=== PATIENT | female | born 1980 | race Caucasian/White ===

== ENCOUNTER 2023-10-17 10:19 | Outpatient (CLI) | payer OTHER, SELFPAY ==
[2023-10-17 11:24] LABS: Anion Gap 9 mmol/L (4-12); Blood Urea Nitrogen 14 mg/dL (7-17); Calcium 9.1 mg/dL (8.4-10.2); Carbon Dioxide 23 mmol/L (22-30); Chloride 110 mmol/L (98-107); Estimated Glomerular Filt Rate > 60; Glucose 79 mg/dL (65-110); Potassium 3.7 mmol/L (3.4-5.0); Sodium 142 mmol/L (137-145)
== END 2023-10-17 10:20 | disposition home or self-care (01) ==
PROVIDERS: Visit Provider Student in an Organized Health Care Education/Training Program
DX: G40.109 Localization-related (focal) (partial) symptomatic epilepsy and epileptic syndromes with simple partial seizures, not intractable, without status epilepticus (principal)
CPT/HCPCS: 36415; 80048

== ENCOUNTER 2024-02-02 13:20 | Outpatient (CLI) | payer OTHER, SELFPAY ==
--- NOTE | ~2024-02-02 | MR_ITS ---
EXAMINATION: MR brain/brain stem wo con DATE: 02/02/2024 14:06 INDICATION: Epilepsy. TECHNIQUE: Magnetic resonance imaging (MRI) of the brain and brainstem was performed without intraven ous contrast. COMPARISON: None. FINDINGS: There is no intracranial hemorrhage or acute infarction. There is increased T2-weighted sig nal intensity in medial right temporal lobe including the uncus. The hippocampi are normal and symmet edouard. The ventricles are normal in size. There is a mucous retention cyst in left ethmoid sinus. The m astoid air cells are normal. The orbits are normal. IMPRESSION: 1. Increased T2-weighted signal intensity in medial right temporal lobe. The differential diagnosis i ncludes cortical dysplasia, glioma, subacute versus chronic infarct, and HSV encephalitis. Brain MRI with contrast is recommended. Reviewed, dictated and finalized at location A. IMPRESSION: 1. Increased T2-weighted signal intensity in medial right temporal lobe. The di fferential diagnosis includes cortical dysplasia, glioma, subacute versus chron ic infarct, and HSV encephalitis. Brain MRI with contrast is recommended.
== END 2024-02-02 13:21 | disposition home or self-care (01) ==
PROVIDERS: Visit Provider Psychiatry & Neurology Neurology
DX: G40.109 Localization-related (focal) (partial) symptomatic epilepsy and epileptic syndromes with simple partial seizures, not intractable, without status epilepticus (principal)
CPT/HCPCS: 70551

== ENCOUNTER 2024-06-18 10:13 | Outpatient (CLI) | payer OTHER, SELFPAY ==
[2024-06-18 10:45] LABS: Basophils Absolute Auto 0.1 K/mm3 (0.0-0.1); Basophils Percent Auto 0.7 % (0.2-1.2); Eosinophils Absolute Auto 0.2 K/mm3 (0-0.3); Eosinophils Percent Auto 1.7 % (0-4.4); Hematocrit 36.4 % (37.0-47.0); Hemoglobin 10.5 g/dL (12.0-15.0); Immature Granulocyte Absolute 0.04 K/mm3 (0.00-0.031); Immature Granulocyte Percent A 0.4 % (0-0.5); Lymphocytes Absolute Auto 3.19 K/mm3 (0.9-3.2); Lymphocytes Percent Auto 29.5 % (18.3-44.2); Mean Corpuscular HGB Conc 28.8 g/dl (32-36); Mean Corpuscular Hemoglobin 20.8 pg (26-34); Mean Corpuscular Volume 72.2 fl (80-100); Mean Platelet Volume 9.4 fl (7.4-10.4); Monocytes Absolute Auto 0.8 K/mm3 (0.1-0.6); Monocytes Percent Auto 7.4 % (2.6-8.5); Neutrophils Absolute Auto 6.5 K/mm3 (1.3-6.7); Neutrophils Percent Auto 60.3 % (45.5-73.1); Platelet Count Result 435 k/mm3 (150-375); Red Blood Count 5.04 M/mm3 (4.2-5.4); Red Cell Distribution Width 19.6 % (11.5-14.5); White Blood Count 10.8 K/mm3 (4.5-10.0)
[2024-06-18 10:54] LABS: Alanine Aminotransferase 17 U/L (6-35); Albumin Level 4.2 g/dL (3.5-5.1); Alkaline Phosphatase 105 U/L (38-126); Anion Gap 7 mmol/L (4-12); Aspartate Amino Transferase 30 U/L (14-36); Bilirubin,Total 0.4 mg/dL (0.2-1.3); Blood Urea Nitrogen 12 mg/dL (7-17); Calcium 8.9 mg/dL (8.4-10.2); Carbon Dioxide 26 mmol/L (22-30); Chloride 105 mmol/L (98-107); Estimated Glomerular Filt Rate > 60; Glucose 83 mg/dL (65-110); Sodium 138 mmol/L (137-145)
--- OUTSIDE RECORDS SUMMARY | 2024-06-18 10:58 | XMS_ITS | Clinical Summary ---
Author Organization [facility] Address [address] [address] Care Team Providers Care Head Up Operator Helper Name Role Phone WilliamsAngel chRegino FAJARDO-FIRE PROTECTION DESIGNER Primary Care Provider [phone] Source Comments [facility],non-owned Affiliates and Associated Physician Practices is amultiple site organization consisting of ambulatory clinics and hospital sitesin [place], [place], [place] and [place]. This disclosure is being madepursuant to the Care Everywhere program and may not contain all information available regarding this patient. Last updated 18.[facility] Allergies No known active allergies Medications * Be aware that medications may not be up to date on this document. Alwaysverify current medications with the patient. Medication Sig Dispensed Refills Start Date End Date Status carBAMazepine ER 12hr (CARBATROL) 300 MG capsule Take 1 (one) capsule by mouth every 12 hours Active HYDROcodone-acetam inophen (NORCO) 5-325 MG tablet Take 1 (one) tablet by mouth every 6 hours as needed for Pain 20 tablet 04/10/2021 Active Additional Information Patient not taking.Reported on 06/10/2023 ofloxacin (Floxin) 0.3 % otic solutionIndication s:Otitis Externa Instill 5 (five) drops into left ear 2 times daily Reasons: External Ear Canal Inflammation 5 mL 06/10/2023 Active Active Problems No known active problems Social History Tobacco Use Types Packs/Day Years Used Date Smoking Tobacco: Never Smokeless Tobacco: Never Tobacco Cessation:Counseling Given: Not Answered Alcohol Use Standard Drinks/Week Comments Not Currently 0 (1 standard drink = 0.6 oz pur e alcohol) AUDIT-C Answer Date Recorded Q1: How often do you have a drink containing alc ohol? Never 04/10/2021 Average Number of Drinks Not on file 021 Frequency of Binge Drinking Not on file 03/14 PHQ-2 Answer Date Recorded Patient Health Questionnaire-2 Score 0 06/10/2023 Sex and Gender Information Value Date Recorded Sex Assigned at Not on file Gender Identity Not on file Sexual Orientation Not on file Last Filed Vital Signs Vital Sign Reading Time Taken Comments Blood Pressure 134/80 06/10/2023 9:56 AM LOOPER FIXER Pulse 98 06/10/2023 9:56 AM LOOPER FIXER Temperature 36.7 C (98.1 F) 06/10/2023 9:56 AM LOOPER FIXER Respiratory Rate 18 04/10/2021 10:56 PM LOOPER FIXER Oxygen Saturation 98% 06/10/2023 9:56 AM LOOPER FIXER Inhaled Oxygen Concentration - - Weight 103.4 kg (228 lb) 06/10/2023 9:56 AM LOOPER FIXER Height 162.6 cm (5' 4 ) 04/10/2021 1:30 PM LOOPER FIXER Body Mass Index 39.14 04/10/2021 1:30 PM LOOPER FIXER Plan of Treatment Health Maintenance Due Date Last Done Comments LIPID TESTING 1981 MAMMOGRAM 1981 PAP SMEAR 1981 HIV SCREENING 01/24/1996 HEPATITIS C SCREENING 01/19/1999 DTAP/TDAP/TD VACCINES (1 - Tdap) 01/24/2000 HEPATITIS B VACCINE (1 of 3 - 19+ 3-dose series) 01/24/2000 COVID-19 VACCINE (2 - 2023-2 5 season) 2024 01/17/2021 INFLUENZA VACCINE (#1) 2024 04/16/2017 DEPRESSION SCREENING 05/12/2024 06/10/2023 ZOSTER VACCINE (1 of 2) 2031 HIB VACCINE Aged Out No longer eligi ble based on patient's age to complete this topic HPV VACCINE Aged Out No longer eligi ble based on patient's age to complete this topic MENINGOCOCCAL (Group B) VACCINE Aged Out No longer eligible based on patient's age to complete this topic MENINGOCOCCAL VACCINE Aged Out No gabriela darrius eligible based on patient's age to complete this topic PNEUMOCOCCAL VACCINE Aged Out No long er eligible based on patient's age to complete this topic Care Teams Head Up Operator Helper Relationship Specialty Start Date End Date Keiry Tovar APRN-FIRE PROTECTION DESIGNER [address] [place] [id number] PCP - General Nurse Practitioner 03/13/17
--- OUTSIDE RECORDS SUMMARY | 2024-06-18 10:58 | XMS_ITS | Patient Health Summary ---
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 3.5 - 10.5 10 3/uL 04/10/2021 2:00 PM [facility] RBC 4.97 3.80 - 5.20 10 6/uL 04/10/2021 2:00 PM [facility] Hemoglobin 13.8 12.0 - 15.6 g/dL 04/10/2021 2:00 PM [facility] Hematocrit 42.0 35.0 - 45.0 % 04/10/2021 2:00 PM [facility] MCV 84.5 80.7 - 98.3 fL 04/10/2021 2:00 PM [facility] MCH 27.8 26.7 - 34.0 pg 04/10/2021 2:00 PM [facility] MCHC 32.9 30.8 - 35.9 g/dL 04/10/2021 2:00 PM [facility] Platelet Count 336 150 - 400 10 3/uL 04/10/2021 2:00 PM [facility] RDW-SD 41.8 36.0 - 50.0 fL 04/10/2021 2:00 PM [facility] RDW-CV 13.6 11.2 - 14.8 % 04/10/2021 2:00 PM [facility] MPV 10.0 9.4 - 12.9 fL 04/10/2021 2:00 PM [facility] nRBC Absolute 0.00 0 10 3/uL 04/10/2021 2:00 PM [facility] nRBC Auto 0.0 0 /100 WBC 04/10/2021 2:00 PM [facility] Neutrophils % 81.6(H) 35.0 - 70.0 % 04/10/2021 2:00 PM [facility] Lymphocytes % 11.2(L) 20.0 - 43.0 % 04/10/2021 2:00 PM [facility] Monocytes % 6.0 5.0 - 13.0 % 04/10/2021 2:00 PM [facility] Eosinophils % 0.3 0.0 - 6.0 % 04/10/2021 2:00 PM [facility] Basophil % 0.4 0.0 - 2.0 % 04/10/2021 2:00 PM [facility] Neutrophils Absolute 13.5(H) 1.6 - 7.0 10 3/uL 04/10/2021 2:00 PM [facility] Lymphocyte Absolute 1.9 1.1 - 3.9 10 3/uL 04/10/2021 2:00 PM [facility] Monocytes Absolute 0.99 0.26 - 1.07 10 3/uL 04/10/2021 2:00 PM [facility] Eosinophils Absolute 0.05 0.00 - 0.47 10 3/uL 04/10/2021 2:00 PM [facility] Basophils Absolute 0.06 0.00 - 0.08 10 3/uL 04/10/2021 2:00 PM [facility] Immature Granulocytes % 0.5 0.0 - 1.0 % 04/10/2021 2:00 PM [facility] Immature Granulocytes Absolute 0.09 04/10/2021 2:00 PM [facility] Blood BLOOD SPECIMEN / Unknown Venipuncture / Unknown 04/10/2021 1:37 PM [employer] SALES REP 04/10/2021 1:53 PM [facility] Bienvenido Kohli MD LAB - HEMATOLOGY ORD ERABLES [facility] [address] [place] [phone], [facility] [phone] * HCG BETA BLOOD QUANTITATIVE (04/10/2021 1:37 PM [employer] SAL[employer] REP) Beta-hCG Total Quantitative <3 <5 mIU/mL 04/10/2021 2:27 PM [facility] Comment: This assay is cleared for use in the early detection of only. It is not approved for any other uses such as tumor marker screening, tumor marker monitoring, etc. and should not be used for any other purposes. HCG Numeric Result Interpretation: Non- Females: < 5 mIU/mL Post-Menopausal Females: < 7 mIU/mL Blood BLOOD SPECIMEN / Unknown Venipuncture / Unknown 04/10/2021 1:37 PM [employer] FINANCE SALES REP 04/10/2021 1:53 PM [employer] SAL[employer] RE[employer] Bienvenido Kohli MD LAB - CHEMISTRY [place] Performing Organization Address City/[facility]/ZIP Co de Phone Number [address] [address], [employer] [phone] * CARBAMAZEPINE LEVEL TOTAL (04/10/2021 1:37 PM [employer] SALES REP) Only the most recent of2 resultswithin the time period is included. Pathologist [facility] Carbamazepine, trough 7.7 4.0 - 12.0 ug/mL 04/10/2021 2:27 PM AUT[employer] FINANCE SALES REP [facility] Blood BLOOD SPECIMEN / Unknown Venipuncture / Unknown 04/10/2021 1:37 PM [employer] FINANCE SALES REP 04/10/2021 1:53 PM [employer] SAL[employer] RE[employer] Bienvenido Kohli MD LAB - CHEMISTRY [place] Performing Organization Address [facility]/ZIP Co de Phone Number [address] [address], [employer] [phone] * TYPE + SCREEN PANEL (04/10/2021 1:30 PM [employer] FINANCE SALES REP) Only the most recent of2 resultswithin the time period is included. [facility] Antibody Screen NEG 2:51 PM [employer] FINANCE SALES REP [facility] ABO Rh B POS 04/10/2021 2:51 PM [employer] FINANCE SALES REP [facility] Blood Bank BLOOD SPECIMEN / Unknown Venipuncture / Unknown 04/10/2021 1:30 PM [employer] FINANCE SALES REP 04/10/2021 1:55 PM [employer] SALES REP Bienvenido Kohli MD LAB - BLOOD BANK ORD KIERA [facility] [address] [place] [phone], [employer] [phone] * EKG 12-LEAD (04/10/2021 11:24 AM [employer] FINANCE SALES REP) Pathologist [facility] Ventricular Rate 82 BPM [facility] MUSE Atrial Rate 82 BPM [facility] MUSE P-R Interval 140 ms [facility] MUSE QRS Duration ms 78 ms [facility] MUSE Q-T Interval ms 374 ms [facility] MUSE QTC Calculation (Bezet) 436 ms [facility] MUSE Calculated P Brogue 45 degrees [facility] MUSE Calculated R Brogue 9 degrees [facility] MUSE Calculated T Brogue 67 degrees [facility] MUSE Interpretation EKG NORMAL SINUS RHYTHM NORMAL ECG NO PREVIOUS ECGS AVAILABLE Confirmed by HOLLIE LEONARD, [facility] ([id number]), video tape editor SPENCER DOAN ([id number]) on 04/11/2021 7:50:00 AM [facility] MUSE 04/10/2021 11:2 4 AM [employer]ANCE SALES REP 04/11/2021 7:50 AM [employer] FINANCE SALES REP Nara Henderson MD ECG ORDERABLES [facility] M[facility] * TSH REFLEX FREE T4 (04/10/2021 11:16 AM AUTO FINANCE SALES REP) [facility] TSH 1.937 0.35 - 4.94 uIU/mL 04/10/2021 3:50 PM [employer] FINANCE SALES REP [facility] Comment:TSH Normal, Reflex F ree T4 Not Performed. Blood BLOOD SPECIMEN / Unknown Venipuncture / Unknown 04/10/2021 11:16 AM [employer] FINANCE SALES REP 04/10/2021 3:11 PM [employer] FINANCE SALES REP Nara Henderson MD LAB - CHEMISTRY ORDE RABSANDOVAL [facility] [address] * TROPONIN I (04/10/2021 11:16 AM AUT[employer] FINANCE SALES REP) [facility] Troponin I <0.012 <0.032 ng/mL 04/10/2021 11:54 AM AUT[employer] FINANCE SALES REP [facility] Blood BLOOD SPECIMEN / Unknown Venipuncture / Unknown 04/10/2021 11:16 AM [employer] FINANCE SALES REP 04/10/2021 11:20 AM AUT[employer] FINANCE SALES REP Narrative [facility] - 04/10/2021 11:54 AM [employer] FINANCE SALES REP The universal definition of myocardial infarction (AK) being at least one value above the 99th percentile of the upper reference limit (0.028 ng/mL combined male/female), along with evidence of AK with at least one of the following: Ischemic symptoms, pathological Q waves on electrocardiogram (ECG), ischemic ECG changes or imaging evidence of new loss of viable myocardium or new regional wall motion abnormality. An elevated TNI value alone is not sufficient to make a the diagnosis of AK, serial sampling is recommended to detect the temporal rise and fall of troponin levels characteristic of AK. Any condition resulting in myocardial cell damage can increase cardiac TNI levels. In addition to AK, these include but are not limited to congestive heart failure, arrhythmia, myocarditis and non-cardiac related causes such as pulmonary embolism, renal failure and sepsis. Nara Henderson MD LAB - CHEMISTRY ORDE RABLES Performing Organization Address [facility] de Phone Number [facility] [address] [place] [address] * (ABNORMAL) PT-INR (04/10/2021 11:16 AM [facility]) PT 12.5 11.3 - 14.8 sec 04/10/2021 11:33 AM [facility] INR 0.96(L) 2 - 3 04/10/2021 11:33 AM [facility] Blood BLOOD SPECIMEN / Unknown Venipuncture / Unknown 04/10/2021 11:16 AM [employer] SALES REP 04/10/2021 11:20 AM [facility] Narrative [facility] - 04/10/2021 11:33 AM [facility] Recommended therapeutic INR ranges for Oral Anticoagulant Therapy: 2.0-3.0 For prevention of Thrombosis or Embolism and treatment of Venous Thrombosis. 2.5- 3.5 for prevention of Recurrent Embolism or treatment of patients with Mechanical Prosthetic Heart Valves. Nara Henderson MD LAB - COAGULATION OR DERABLES Performing Organization Address [facility] de Phone Number [facility] [address] * (ABNORMAL) COMPREHENSIVE METABOLIC PANEL (04/10/2021 11:16 AM [employer] SALES REP) Only the most recent of2 resultswithin the time period is included. Pathologist [facility] Glucose 107 70 - 125 mg/dL 04/10/2021 11:47 AM [facility] Sodium 142 136 - 145 mmol/L 04/10/2021 11:47 AM [facility] Potassium 4.1 3.4 - 4.5 mmol/L 04/10/2021 11:47 AM [facility] Comment:1+ hemolysis Chloride 109(H) 98 - 107 mmol/L 04/10/2021 11:47 AM [facility] CO2 20(L) 22 - 29 mmol/L 04/10/2021 11:47 AM [facility] Calcium 8.7 8.4 - 10.2 mg/dL 04/10/2021 11:47 AM [facility] Anion Gap 17 10 - 20 mmol/L 04/10/2021 11:47 AM [facility] BUN 9.9 9.8 - 20.1 mg/dL 04/10/2021 11:47 AM [facility] Creatinine 0.89 0.57 - 1.11 mg/dL 04/10/2021 11:47 AM [facility] eGFR by MDRD >60 >60 mL/min/1.7 3m2 04/10/2021 11:47 AM [facility] eGFR by MDRD >60 >60 mL/min/1.7 3m2 04/10/2021 11:47 AM [facility] Alkaline Phosphatase 92 40 - 150 U/L 04/10/2021 11:47 AM [facility] ALT 16 5 - 55 U/L 04/10/2021 11:47 AM [facility] AST 19 5 - 34 U/L 04/10/2021 11:47 AM [facility] Protein Total 7.4 6.4 - 8.3 gm/dL 04/10/2021 11:47 AM [facility] Albumin 3.4(L) 3.5 - 5.0 gm/dL 04/10/2021 11:47 AM [facility] Globulin Total 4.0 2.6 - 4.0 gm/dL 04/10/2021 11:47 AM [facility] Albumin/Globulin Ratio 0.9 0.9 - 1.6 04/10/2021 11:47 AM [facility] Bilirubin Total 0.3 0.2 - 1.2 mg/dL 04/10/2021 11:47 AM [facility] Blood BLOOD SPECIMEN / Unknown Venipuncture / Unknown 04/10/2021 11:16 AM [employer] REP 04/10/2021 11:20 AM [facility] Nara Henderson MD LAB - CHEMISTRY ORDE RABLES Performing Organization Address City/[facility]/ZIP Co de Phone Number [facility] [address] * ALCOHOL ETHYL BLOOD (04/10/2021 11:16 AM [employer] SALES REP) Pathologist [facility] Ethanol <10.0 <10 mg/dL 04/10/2021 3:2 8 PM [employer] FINANCE SALES REP [facility] Blood BLOOD SPECIMEN / Unknown Venipuncture / Unknown 04/10/2021 11:16 AM [employer] SALES REP 04/10/2021 3:11 PM [employer]ANCE SALES REP Narrative [facility] - 04/10/2021 3:28 PM AUT[employer] FINANCE SALES REP For Medical Use Only Nara Henderson MD LAB - CHEMISTRY [place] Performing Organization Address [facility] Co de Phone Number [facility] [address] * HCG BLOOD QUALITATIVE (05/21/2020 5:54 PM [employer] FINANCE SALES REP) Pathologist [facility] HCG Qual Serum Negative Negative 05/21/2020 6:12 PM [employer] FINANCE SALES REP [facility] Blood BLOOD SPECIMEN / Unknown Venipuncture / Unknown 05/21/2020 5:54 PM [employer]ANCE SALES REP 05/21/2020 5:56 PM [employer] FINANCE SALES REP Moe Whalen MD LAB - CHEMISTRY [place] Performing Organization Address City/[facility] Co de Phone Number [facility] [address] * XR ANKLE 3+ VW BILAT [id number] X 2 (03/13/2019 7:27 PM CDT) Anatomical Region Laterality Modality Ankle / Foot, Lower Extremity Ra diographic Imaging 03/13/2019 7:48 PM CDT Impressions 03/13/2019 10:54 PM CDT RIGHT ANKLE 3 VIEWS: Smooth, well-corticated ossific density projected adjacent to lateral malleolus which I suspect represents residual of old trauma. No acute osseous abnormality identified. No apparent dislocation. There is also a smooth ossific density which may represent residual of old trauma projected adjacent to medial malleolar tip. Moderate sized plantar calcaneal spur. LEFT ANKLE 3 VIEWS: Moderate sized plantar calcaneal spur. No apparent fracture, dislocation, or bone destruction. Edited by GUILHERME CHAUDHARI on 03/13/2019 8:05 PM Narrative 03/13/2019 10:54 PM CDT RIGHT AND LEFT ANKLES (03/13/2019) HISTORY: Arthralgia of both ankles. Procedure Note Bernard Leiva MD - 03/13/2019 RIGHT AND LEFT ANKLES (03/13/2019) HISTORY: Arthralgia of both ankles. IMPRESSION RIGHT ANKLE 3 VIEWS: Smooth, well-corticated ossific density projected adjacent to lateral malleolus which I suspect represents residual of old trauma. No acute osseous abnormality identified. No apparent dislocation. There is also a smooth ossific density which may represent residual of old trauma projected adjacent to medial malleolar tip. Moderate sized plantar calcaneal spur. LEFT ANKLE 3 VIEWS: Moderate sized plantar calcaneal spur. No apparent fracture, dislocation, or bone destruction. Edited by GUILHERME CHAUDHARI on 03/13/2019 8:05 PM Dayna Moraels APRN-REAL ESTATE ACCOUNTANT DIAGNOSTIC IMAG ING ORDERABLES Care Teams Mother'S Helper Relationship Specialty Start Date End Date Keiry Tovar APRN-CNP [address] [place] [phone] PCP - General Nurse Practitioner 03/13/17
--- OUTSIDE RECORDS SUMMARY | 2024-06-18 10:58 | XMS_ITS | Referral Summary ---
Author Organization [facility] Address [address] [place] [address] Care Team Providers Care Clinical Secretary Name Role Phone GuyAngelRegino FAJARDO-AMMONIA DISTILLER Primary Care Provider [phone] Source Comments [facility],non-owned Affiliates and Associated Physician Practices is amultiple site organization consisting of ambulatory clinics and hospital sitesin [place], [place], [place] and [place]. This disclosure is being madepursuant to the Care Everywhere program and may not contain all information available regarding this patient. Last updated 18.[facility] Allergies No known active allergies Medications * [...] Comments Blood Pressure 134/80 06/10/2023 9:56 AM BUS INFO CONSULTANT Pulse 98 06/10/2023 9:56 AM BUS INFO CONSULTANT Temperature 36.7 C (98.1 F) 06/10/2023 9:56 AM BUS INFO CONSULTANT Respiratory Rate 18 04/10/2021 10:56 PM BUS INFO CONSULTANT Oxygen Saturation 98% 06/10/2023 9:56 AM BUS INFO CONSULTANT Inhaled Oxygen Concentration - - Weight 103.4 kg (228 lb) 06/10/2023 9:56 AM BUS INFO CONSULTANT Height 162.6 cm (5' 4 ) 04/10/2021 1:30 PM BUS INFO CONSULTANT Body Mass Index 39.14 04/10/2021 1:30 PM BUS INFO CONSULTANT Plan of Treatment Not on file Care Teams Clinical Secretary Relationship Specialty Start Date End Date Keiry Tovar APRN-AMMONIA DISTILLER [address] [place] [phone] PCP - General Nurse Practitioner 03/13/17
[2024-06-18 11:15] LABS: Anisocytosis 1+; Platelet Estimate Increased (Adequate); Schistocytes None Seen
[2024-06-21 19:12] LABS: Red Blood Cell Folate 634 ng/mL RBC (>280)
[2024-06-22 01:58] LABS: Carbamazepine Tegretol 5.2 mcg/mL (4.0-12.0)
[2024-06-23 07:48] LABS: Methylmalonic Acid 318 nmol/L (55-335)
== END 2024-06-18 10:14 | disposition home or self-care (01) ==
LOC: ANHLAB 10:15
PROVIDERS: Visit Provider Psychiatry & Neurology Neurology
DX: G40.109 Localization-related (focal) (partial) symptomatic epilepsy and epileptic syndromes with simple partial seizures, not intractable, without status epilepticus (principal); E55.9 Vitamin D deficiency, unspecified
CPT/HCPCS: 36415; 80053; 80156; 82607; 82652; 82747; 83921; 85025

== ENCOUNTER 2024-09-15 09:53 | Outpatient (CLI) | payer OTHER, SELFPAY ==
--- NOTE | ~2024-09-15 | MR_ITS ---
MRI of the brain Clinical History: Multiple sclerosis Technique: Axial and sagittal T1-weighted images were acquired. These were followed by axial T2-weigh gely, diffusion weighted, gradient, and FLAIR images. Following intravenous administration of 20 cc Pr oHance gadolinium, T1-weighted fat-sat imaging was performed in the axial and coronal and sagittal pl anes. COMPARISON: 02/02/2024 Findings: Stable vague FLAIR hyperintensity in the medial right temporal lobe anteriorly. No other ab normal signal seen in the brain parenchyma. No acute infarct, internal hemorrhage, or mass lesion. Ventricles and subarachnoid spaces are unremarkable. Orbits are unremarkable. Left maxillary sinus di sease with retention cyst or polyp present. Paranasal sinuses and mastoid air cells are otherwise ginna ar. Major intracranial flow voids are intact. Sagittal midline structures are intact. No abnormal postcontrast enhancement identified. IMPRESSION: Stable vague amorphous FLAIR/T2 hyperintensity in the anteromedial right temporal lobe, without enhan cement. Stability mitigates against acute etiology such as viral encephalitis. This is most compatibl e with chronic/indolent process. Reviewed, dictated and finalized at location . IMPRESSION: Stable vague amorphous FLAIR/T2 hyperintensity in the anteromedial right tempor al lobe, without enhancement. Stability mitigates against acute etiology such a s viral encephalitis. This is most compatible with chronic/indolent process.
--- OUTSIDE RECORDS SUMMARY | 2024-09-15 10:38 | XMS_ITS | Clinical Summary ---
Author Organization [facility] Address [address] [place] [address] Care Team Providers Care Fruit Ii Farmworker Name Role Phone WilliamsomKeiry TANA-SLIDE DEVELOPER Primary Care Provider [phone] Source Comments [facility],non-owned Affiliates and Associated Physician Practices is amultiple site organization consisting of ambulatory clinics and hospital sitesin [place], [place], [place] and [place]. This disclosure is being madepursuant to the Care Everywhere program and may not contain all information available regarding this patient. Last updated 18.[facility] Allergies No known active allergies Medications * Be aware that medications may not be up to date on this document. Alwaysverify current medications with the patient. carBAMazepine ER 12hr (CARBATROL) 300 MG capsule Take 1 (one) capsule by mouth every 12 hours Active HYDROcodone-layton taminophen (NORCO) 5-325 MG tablet Take 1 (one) tablet by mouth every 6 hours as needed for Pain 20 tablet Active Additional Information Patient not taking.Reported on 06/10/2023 ofloxacin (Floxin) 0.3 % otic solutionIndicat ions:Otitis Externa Instill 5 (five) drops into left ear 2 times daily Reasons: External Ear Canal Inflammation 5 mL 4 Active Active Problems No known active problems [...] Recorded Patient Health Questionnaire-2 Score 0 06/10/2023 Comments No Sex and Gender Information Value Date Recorded Sex Assigned at Not on file Legal Sex Female 6:43 PM CDT Gender Identity Not on file Sexual Orientation Not on file Last Filed Vital Signs Vital Sign Reading Time Taken Comments Blood Pressure 134/80 06/10/2023 9:56 AM RAFTSMAN Pulse 98 06/10/2023 9:56 AM RAFTSMAN Temperature 36.7 C (98.1 F) 06/10/2023 9:56 AM RAFTSMAN Respiratory Rate 18 04/10/2021 10:56 PM RAFTSMAN Oxygen Saturation 98% 06/10/2023 9:56 AM RAFTSMAN Inhaled Oxygen Concentration - - Weight 103.4 kg (228 lb) 06/10/2023 9:56 AM RAFTSMAN Height 162.6 cm (5' 4 ) 04/10/2021 1:30 PM RAFTSMAN Body Mass Index 39.14 04/10/2021 1:30 PM RA[facility]SM[facility] Plan of Treatment Health Maintenance Due Date Last Done Comments LIPID TESTING 1981 MAMMOGRAM 1981 PAP SMEAR 1981 HIV SCREENING 01/24/1996 HEPATITIS C SCREENING 01/19/1999 DTAP/TDAP/TD VACCINES (1 - Tdap) 01/24/2000 HEPATITIS B VACCINE (1 of 3 - 19+ 3-dose series) 01/24/2000 COVID-19 VACCINE (2 - 2023-2 5 season) 2024 01/17/2021 DEPRESSION SCREENING 05/12/2024 06/10/2023 INFLUENZA VACCINE (Season Ended) 2025 04/16/20 17 ZOSTER VACCINE (1 of 2) 2031 HIB VACCINE Aged Out No longer eligi ble based on patient's age to complete this topic HPV VACCINE Aged Out No longer eligi ble based on patient's age to complete this topic MENINGOCOCCAL (Group B) VACC INE SHARED DECISION-MAKING Aged Out No longer eligibl e based on patient's age to complete this topic MENINGOCOCCAL GROUPS A/C/Y/W VACCINE Aged Out No longer eligible b ased on patient's age to complete this topic PNEUMOCOCCAL VACCINE Aged Out No long er eligible based on patient's age to complete this topic Insurance [employer] Care Teams Fruit Ii Farmworker Relationship Specialty Start Date End Date Keiry Tovar, ANNEALING TORCH OPERATOR-SLIDE DEVELOPER [address] [place] [phone] PCP - General Nurse Practitioner 03/13/17
--- OUTSIDE RECORDS SUMMARY | 2024-09-15 10:38 | XMS_ITS | Clinical Summary ---
Author Organization [facility] Address [address] [place] [address] Phone Care Team Providers Care Hand Stripper Name Role Phone Keiry Tovar APRN, JORJE Primary Care Provider + Allergies No known active allergies Medications carBAMazepine (CARBATROL) 300 MG CAPSULE SR 12 HR Take 300 mg by mouth 2 times daily. Active Ferrous Gluconate 240 (27 Fe) MG Tablet Take by mouth. Active lisinopril-hydro CHLOROthiazide (PRINZIDE, ZESTORETIC) 20-25 MG Tablet Take 1 Tablet by mouth daily. Active Encounters Date Type Department Care Team Description 07/28/2024 2:41 PM CDT - 07/28/2024 6:30 PM CDT Emergency [facility] Emergency Dept. Services [address] [place] [address] Amisha Frye, Altered mental status Discharge Disposition: Discharged to home or Selfcare 07/28/2024 Travel from Last 3 Months Social History Tobacco Use Types Packs/Day Years Used Date Smoking Tobacco: Never Assessed Comments No Sex and Gender Information Value Date Recorded Sex Assigned at Female 07/29/2024 9:52 AM CDT Legal Sex Female 2:12 PM CDT Gender Identity Female 07/28/2024 3:11 PM CDT Sexual Orientation Not on file Last Filed Vital Signs Vital Sign Reading Time Taken Comments Blood Pressure 146/86 07/28/2024 6:00 PM CDT Pulse 87 07/28/2024 6:00 PM CDT Temperature 36.6 C (97.9 F) 07/28/2024 2:14 PM CDT Respiratory Rate 17 07/28/2024 6:00 PM CDT Oxygen Saturation 97% 07/28/2024 6:00 PM CDT Inhaled Oxygen Concentration - - Weight 95.3 kg (210 lb) 07/28/2024 2:14 PM CDT Height 162.6 cm (5' 4 ) 07/28/2024 2:14 PM CDT Body Mass Index 36.05 07/28/2024 2:14 PM CDT Plan of Treatment Health Maintenance Due Date Last Done Comments Hepatitis C Virus (HCV) Screening 1980 Mammogram 1980 Hepatitis B Immunization (1 of 3 - 19+ 3-dose series) 01/24/2000 Pap Smear 2002 Cervical Cancer Screening (CCS) 2011 HPV/Cotest 2011 Discussion re Starting/Frequ ency of Mammograms 2021 Influenza Immunization (#1) 2024 04/16/2017 SARS-COV-2 Immunization () 01/11/2024 01/17/2021 Respiratory Syncytial Virus (RSV) Immunization (Adult) (1 - 1-dose 75+ series) 01/24/2056 TdaP Immunization Completed 08/25/2018 Meningococcal Immunization (ACWY) Aged Out No longer eligible based on patient's age to complete this topic Pneumococcal Immunization Combined Aged Out No longer eligible based on patient's age to complete this topic Rotavirus Immunization Aged Out No lo nger eligible based on patient's age to complete this topic Procedures Procedure Name Priority Date/Time Associated Diagnosis Comments CT HEAD OR BRAIN WO CONTRAST Stat with Interpretation 07/28/2024 4:49 PM CDT CBC WITH AUTO DIFFERENTIAL STAT 07/28/2024 4:05 PM CDT MORPHOLOGY SLIDE REVIEW STH STAT 07/28/2024 4:05 PM CDT CARBAMAZEPINE (TEGRETOL), [facility] [id number] STAT 07/28/2024 4:05 PM CDT PROLACTIN, [facility] [id number] STAT 07/28/2024 4:05 PM CDT CMP (COMPREHENSIVE METABOLIC PANEL) STAT 07/28/2024 4:05 PM CDT COMPLETE BLOOD COUNT (CBC) WITH DIFF STAT 07/28/2024 4:05 PM CDT EKG 12 LEAD STAT 07/28/2024 3:56 PM CDT from Last 3 Months Results * CT HEAD OR BRAIN WO CONTRAST (07/28/2024 4:49 PM CDT) Anatomical Region Laterality Modality Head N/A Computed Tomogra phy 07/28/2024 5:15 PM CDT Narrative 07/28/2024 5:15 PM CDT EXAM DESCRIPTION: CT HEAD OR BRAIN WO CONTRAST REASON FOR STUDY: Pt having possible seizure or stroke. Upon EMS arrival pt was alert and oriented and was sitting in chair in office. According to staff at office reports that pt was starting off and not responding for approx 2 minutes. Pt has hx of seizures. Pt primary DUMPLING MACHINE OPERATOR wanted pt to be sent to ER for seizure and r/o stroke. Pt able to ambulate off EMS stretcher and sit and position self on stretcher. NIHS performed and pt scoring 0. Pt is alert and oriented upon arrival to ER Denies any symptoms at this time Pt reports that she is compliant with her seizure medication. Duration: Now TECHNIQUE: Axial images acquired through the brain without intravenous contrast. Images stored on PACS. Automated exposure control was used as a dose optimization technique for this examination. COMPARISON: None FINDINGS: The study is degraded by extensive beam hardening artifact through the skull base. BRAIN: No hemorrhage, edema or mass effect. No acute infarction appreciated. There is nonspecific mild low attenuation in the deep cerebral white matter. There is also rswe-ov-sacvzqkg generalized atrophy. No hydrocephalus. CALVARIUM: No fracture. SINUSES/MASTOIDS: There is a large polyp versus mucous retention cysts in the left maxillary sinus which is incompletely imaged. There is leftward deviation of the nasal septum. ORBITS: No significant abnormality. OTHER: No other significant abnormality. IMPRESSION: 1. Study is severely degraded in the region of the skull base due to artifact and subtle findings in this region may be missed. Allowing for this, no obvious acute intracranial abnormality appreciated. If there is concern for ischemia, consider MRI, a more sensitive evaluation. 2. Mild low attenuation in the deep cerebral white matter is nonspecific but can be seen in the setting of chronic microangiopathy. 3. Lkav-yw-eztlffxb generalized atrophy. 4. Large polyp versus mucous retention cyst in the left maxillary sinus. THIS IS AN ELECTRONICALLY VERIFIED FINAL REPORT 07/28/2024 5:15 PM - Electronically signed by Ethan Carranza M.D. AM: AM Report ID: [id number] Reading Location: [id number] Procedure Note Ethan Carranza MD - 07/28/2024 EXAM DESCRIPTION: CT HEAD OR BRAIN WO CONTRAST REASON FOR STUDY: Pt having possible seizure or stroke. Upon EMS arrival pt was alert and oriented and was sitting in chair in office. According to staff at office reports that pt was starting off and not responding for approx 2 minutes. Pt has hx of seizures. Pt primary DUMPLING MACHINE OPERATOR wanted pt to be sent to ER for seizure and r/o stroke. Pt able to ambulate off EMS stretcher and sit and position self on stretcher. NIHS performed and pt scoring 0. Pt is alert and oriented upon arrival to ER Denies any symptoms at this time Pt reports that she is compliant with her seizure medication. Duration: Now TECHNIQUE: Axial images acquired through the brain without intravenous contrast. Images stored on PACS. Automated exposure control was used as a dose optimization technique for this examination. COMPARISON: None FINDINGS: The study is degraded by extensive beam hardening artifact through the skull base. BRAIN: No hemorrhage, edema or mass effect. No acute infarction appreciated. There is nonspecific mild low attenuation in the deep cerebral white matter. There is also nsnj-ui-koaceijc generalized atrophy. No hydrocephalus. CALVARIUM: No fracture. SINUSES/MASTOIDS: There is a large polyp versus mucous retention cysts in the left maxillary sinus which is incompletely imaged. There is leftward deviation of the nasal septum. ORBITS: No significant abnormality. OTHER: No other significant abnormality. IMPRESSION: 1. Study is severely degraded in the region of the skull base due to artifact and subtle findings in this region may be missed. Allowing for this, no obvious acute intracranial abnormality appreciated. If there is concern for ischemia, consider MRI, a more sensitive evaluation. 2. Mild low attenuation in the deep cerebral white matter is nonspecific but can be seen in the setting of chronic microangiopathy. 3. Sqjb-gt-jeczutpa generalized atrophy. 4. Large polyp versus mucous retention cyst in the left maxillary sinus. THIS IS AN ELECTRONICALLY VERIFIED FINAL REPORT 07/28/2024 5:15 PM - Electronically signed by Ethan Carranza M.D. AM: AM Report ID: [id number] Reading Location: [place] [address] us Amisha Frye DO IMG CT ORDERABLES Final Result * SLIDE REVIEW (07/28/2024 4:05 PM CDT) ANISOCYTOSIS 1+ 07/28/2024 4:25 PM CDT [facility] Blood Venipuncture / Unknown 07/28/2024 4:05 PM CDT 07/28/2024 4:07 PM CDT us Amisha Frye DO HEMATOLOGY ORDERABLES Final Re sult [facility] [address] [place] [address], [place] [phone] * CARBAMAZEPINE (TEGRETOL), [facility] (07/28/2024 4:05 PM CDT) CARBAMAZEPINE (TEGRETOL), SERUM 8.7 4.0 - 12.0 ug/mL 07/30/2024 12:07 PM CDT [facility] Comment: In conjunction with other antiepileptic drugs Therapeutic 4.0 - 8.0 Toxicity 9.0 - 12.0 Carbamazepine alone Therapeutic 8.0 - 12.0 Detection Limit = 2.0 <2.0 indicates None Detected Blood Venipuncture / Unknown 07/28/2024 4:05 PM CDT 07/28/2024 4:07 PM CDT Narrative [facility] - 07/30/2024 12:07 PM CDT Performed at: [address] [place] [id number] Care Navigator: Evaristo Guan PhD, Phone: [phone] Amisha Frye DO LAB SEND OUTS Final Result Performing Organization Address [facility] Co de Phone Number [facility] [address] [place] [address], [place] [phone] * PROLACTIN, [facility] (07/28/2024 4:05 PM CDT) Pathologist [facility] [place] PROLACTIN 16.1 4.8 - 33.4 ng/mL 07/30/2024 8:08 AM CDT [facility] Blood Venipuncture / Unknown 07/28/2024 4:05 PM CDT 07/28/2024 4:07 PM CDT Narrative [facility] - 07/30/2024 8:08 AM CDT Performed at: [address] [id number] Care Navigator: Evaristo Guan PhD, Phone: [phone] us Amisha Frye DO LAB SEND OUTS Final Result Performing Organization Address [facility] Co de Phone Number [facility] [address] [place] [address], [place] [phone] * (ABNORMAL) CBC with Auto Differential (07/28/2024 4:05 PM CDT) Pathologist [facility] [place] WBC 13.28(H) 3.88 - 10.35 10(3)/mcL 07/28/2024 4:25 PM CDT [facility] RBC 5.09 3.78 - 5.29 10(6)/mcL 07/28/2024 4:25 PM CDT [facility] HEMOGLOBIN (HGB) 11.8(L) 12.0 - 16.0 g/dL 07/28/2024 4:25 PM CDT [facility] HEMATOCRIT (HCT) 38.3 37.0 - 47.0 % 07/28/2024 4:25 PM [facility] MCV 75.2(L) 82.0 - 100.0 fL 07/28/2024 4:25 PM [facility] MCH 23.2(L) 25.9 - 32.7 pg 07/28/2024 4:25 PM [facility] MCHC 30.8(L) 31.0 - 34.1 g/dL 07/28/2024 4:25 PM [facility] RDW 23.1(H) 11.8 - 15.7 % 07/28/2024 4:25 PM [facility] PLATELET COUNT 368 150 - 450 10(3)/mcL 07/28/2024 4:25 PM [facility] MPV 9.8 8.7 - 12.2 fL 07/28/2024 4:25 PM [facility] NEUTROPHILS 73.1 40.0 - 75.0 % 07/28/2024 4:25 PM [facility] IMMATURE GRANULOCYTE % 0.3 0.0 - 2.0 % 07/28/2024 4:25 PM [facility] LYMPHOCYTES 17.8(L) 20.0 - 40.0 % 07/28/2024 4:25 PM [facility] MONOCYTES 7.6 0.0 - 10.0 % 07/28/2024 4:25 PM [facility] EOSINOPHILS 0.7 0.0 - 4.0 % 07/28/2024 4:25 PM [facility] BASOPHILS 0.5 0.0 - 1.0 % 07/28/2024 4:25 PM [facility] ABSOLUTE NEUTROPHILS 9.70(H) 1.50 - 8.00 10(3)/mcL 07/28/2024 4:25 PM [facility] Blood Venipuncture / Unknown 07/28/2024 4:05 PM CDT 07/28/2024 4:07 PM T us Amisha Frye DO HEMATOLOGY ORDERABLES Final Re sult [facility] [address] [place] [address], [place] [phone] * (ABNORMAL) CMP (07/28/2024 4:05 PM T) SODIUM 134(L) 137 - 145 mmol/L 07/28/2024 4:36 PM [facility] POTASSIUM 3.8 3.5 - 5.1 mmol/L 07/28/2024 4:36 PM [facility] CHLORIDE 100 98 - 107 mmol/L 07/28/2024 4:36 PM [facility] CO2, VENOUS 26 22 - 30 mmol/L 07/28/2024 4:36 PM [facility] GLUCOSE 99 70 - 106 mg/dL 07/28/2024 4:36 PM [facility] BUN 22(H) 7 - 17 mg/dL 07/28/2024 4:36 PM [facility] CREATININE, BLOOD 1.00 0.52 - 1.04 mg/dL 07/28/2024 4:36 PM [facility] ALKALINE PHOSPHATASE 88 38 - 126 U/L 07/28/2024 4:36 PM [facility] SGPT (ALT) 17 1 - 34 U/L 07/28/2024 4:36 PM [facility] SGOT (AST) 19 14 - 36 U/L 07/28/2024 4:36 PM [facility] ALBUMIN 4.5 3.5 - 5.0 g/dL 07/28/2024 4:36 PM [facility] T BILI 0.4 0.2 - 1.3 mg/dL 07/28/2024 4:36 PM [facility] TOTAL PROTEIN 8.2 6.3 - 8.2 g/dL 07/28/2024 4:36 PM [facility] CALCIUM 8.6 8.4 - 10.2 mg/dL 07/28/2024 4:36 PM [facility] ANION GAP 8.0 6.0 - 16.0 mmol/L 07/28/2024 4:36 PM [facility] BUN/CREATININE RATIO 22 7 - 30 ratio 07/28/2024 4:36 PM CDT [facility] A/G RATIO 1.2 0.9 - 2.3 07/28/2024 4:36 PM CDT [facility] GLOBULIN 3.7 2.2 - 3.9 g/dL 07/28/2024 4:36 PM CDT [facility] GFR, ESTIMATED >60 >60 07/28/2024 4:36 PM CDT [facility] OSMOLALITY 272(L) 273 - 304 mOsm/kg 07/28/2024 4:36 PM CDT [facility] Blood Venipuncture / Unknown 07/28/2024 4:05 PM CDT 07/28/2024 4:07 PM CDT us Amisha Frye DO CHEMISTRY ORDERABLES Final Res ult Performing Organization Address City/State/[facility] [place] [address], * EKG 12 LEAD (07/28/2024 3:56 PM CDT) 07/28/2024 3:56 PM CDT Impressions EXTERNAL EKG - 07/30/2024 10:51 AM CDT [address] [address] Test Date: 2024-07-28 Pat Name: PATRIC MOMIN Department: Room: [facility] Gender: F Fitting Room Associate: BILLY : 1980 Requested By: AMISHA FRYE Order Number: [id number] Reading MD: Aubrie Juarez MD Measurements Intervals [place] Rate: 85 P: 23 MA: 146 QRS: -8 QRSD: 98 T: 81 QT: 363 QTc: 432 Interpretive Statements Sinus rhythm RSR' in V1 or V2, probably normal variant Probable left ventricular hypertrophy Electronically Signed On 07-30-2024 10:46:01 CDT by Aubrie Juarez MD Narrative Procedure Note Aubrie Juarez MD - 07/30/2024 IMPRESSION: [address] [place] [address] Test Date: 2024-07-28 Pat Name: PATRIC MOMIN Department: Room: ED04 Gender: F Fitting Room Associate: BILLY : 1980 Requested By: AMISHA FRYE Order Number: [id number] Reading MD: Aubrie Juarez MD Measurements Intervals [place] Rate: 85 P: 23 MA: 146 QRS: -8 QRSD: 98 T: 81 QT: 363 QTc: 432 Interpretive Statements Sinus rhythm RSR' in V1 or V2, probably normal variant Probable left ventricular hypertrophy Electronically Signed On 07-30-2024 10:46:01 CDT by Aubrie Juarez MD us Amisha Frye DO IMG ECG ORDERABLES Final Resul t EXTERNAL EKG from Last 3 Months Insurance [employer] [facility] Care Teams Hand Stripper Relationship Specialty Start Date End Date Keiry Tovar, LITIGATION CLAIM REPRESENTATIVE, RADIOLOGY TEACHER [address] [place] [address] PCP - General Advanced Practice Nurse 07/28/24
== END 2024-09-15 09:54 | disposition home or self-care (01) ==
PROVIDERS: Visit Provider Psychiatry & Neurology Neurology
DX: G35 Multiple sclerosis (principal)
CPT/HCPCS: 70553; A9579